=== PATIENT | female | born 1945 | race Caucasian/White ===

== ENCOUNTER → 2016-12-31 | Outpatient (CLI) | payer MEDICARE, BC ==
[~2016-12-31] MED LIST: ADVAIR 100/28 DISKUS IH; CALTRATE 600 +1 TAB PO; DOXEPIN; FERROUS SU325 MG/TAB PO; FLOVENT DI100 MCG/Ac IH; FOLIC ACID 40400 MCG PO; FOSAMAX PO; MIDAMOR 5MG TAB5 MG PO; MOBIC15 MG PO; MVI PO; NASACORT AQ N16.5 GM NS; NORCO 325 MG-7.1 TAB PO; OPTIVAR 6 ML 6 M6 ML OP; PEN-VEE K500 MG PO; PERCOCET 325 MG1 TA2 PO; PREMARIN VAG CREAM; PREMARIN VAG42.5 GM VG; PRILOSEC10 MG PO; PROAIR HFA0.09 MG/AC IH; RT ADVAIR 128 DISKUS IH; SIMVASTATIN40 MG PO; SINEQUAN 1100 MG/CAP PO; SINGULAIR 110 MG/TAB PO; SINGULAIR10 MG PO; STOOL SOFTENER100 M2 PO; SUDAFED 12 HOU120 MG PO; SUDAFED 12HR120 MG PO; TERBINAFINE PO; ULTRAM 50MG TAB50 MG PO; VITAMIN C BUFF500 MG PO; VITAMIN C500 MG PO; XARELTO10 MG PO; ZYRTEC-D 12HR 51 TER PO; ZYRTEC-D 5 MG-11 TER PO
== END ==
LOC: MC.RAD 11:20
DX: Z12.31 Encounter for screening mammogram for malignant neoplasm of breast (principal)

== ENCOUNTER → 2017-08-29 | Outpatient (CLI) | payer MEDICARE, BC | LOC: COL.LAB 15:17 | DX: Z01.812 Encounter for preprocedural laboratory examination (principal) ==

== ENCOUNTER 2017-09-05 12:57 | Observation (INO) | payer MEDICARE, BC ==
[~2017-09-05] VITALS: Ht 167.6 cm; Wt 96.2 kg
[2017-09-05 14:00] LABS: BASO % 0.3 % (0.0-2.0); EOS # 0.1 (0.0-0.7); EOS % 1.3 % (0-4.0); GRAN # 8.3 (1.4-6.5); GRAN % 78.7 % (42.2-75.2); HEMATOCRIT 39.2 % (37.0-47.0); HEMOGLOBIN 12.7 g/dl (12.5-16.0); LYMPH % 9.9 % (20.0-51.0); MEAN CELL VOLUME 86 fl (80.0-100.0); MEAN CORPUSCULAR HEMOGLOBIN 28 pg (27.0-31.0); MEAN CORPUSCULAR HGB CONC 32 g/dl (33.0-37.0); MEAN PLATELET VOLUME 10.8 fl (7.4-10.4); MONO % 9.4 % (1.7-9.3); PLATELET COUNT 232 K/mm3 (130-400); RED BLOOD COUNT 4.57 M/mm3 (4.10-5.30); REDCELL DISTRIBUTION WIDTH-CV 14.2 % (11.5-14.5)
[2017-09-05 14:04] LABS: INR 1.2 (0.8-3.0); PROTHROMBIN TIME 14.4 SECONDS (9.7-12.8)
[2017-09-05 14:07] LABS: PARTIAL THROMBOPLASTIN TIME 33.1 SECONDS (26.0-37.0)
[2017-09-05 14:10] LABS: ALANINE AMINOTRANSFERASE 54 U/L (9-52); ALBUMIN 3.6 gm/dL (3.5-5.0); ALKALINE PHOSPHATASE 152 U/L (50-136); ANION GAP 7 mmol/L (7-16); AST,SGOT 48 U/L (15-37); BILIRUBIN,TOTAL 0.5 mg/dL (0.0-1.0); BLOOD UREA NITROGEN 12 mg/dL (7-17); CALCIUM 9.4 mg/dL (8.4-10.2); CARBON DIOXIDE 31 mmol/L (22-30); CHLORIDE 96 mmol/L (98-107); CREATININE, serum 0.52 mg/dL (0.52-1.25); GLUCOSE 146 mg/dL (74-106); LIPASE 39 U/L (23-300); SODIUM 134 mmol/L (137-145); TOTAL PROTEIN 6.7 gm/dL (6.4-8.2)
[2017-09-05 14:23] LABS: TROPONIN-I < 0.012 ng/mL (0.000-0.034)
[2017-09-05] MEDS ORDERED: ASTELIN NASAL S34 ML NS (15:01)
[2017-09-05] MEDS ORDERED: XARELTO10 MG PO (15:27)
[2017-09-05] MEDS ORDERED: ZYRTEC 10MG10 MG PO (15:28)
[2017-09-05] MEDS ORDERED: ROXICODONE 55 MG/TAB PO (15:29)
[2017-09-05] MEDS ORDERED: FLOVENT DI100 MCG/Ac IH (18:19)
[2017-09-05] MEDS ORDERED: PROAIR HFA0.09 MG/AC IH (18:19)
[2017-09-05] MEDS ORDERED: SINEQUAN 1100 MG/CAP PO (18:20)
[2017-09-05] MEDS ORDERED: FLONASEALLERGY (18:22)
[2017-09-05] MEDS ORDERED: FLONASEALLERGY NS (18:23)
[2017-09-05 18:27] VITALS: BP 134/64; PULSE 98; TEMP 99.8
[2017-09-05 20:00] VITALS: BP 150/62; PULSE 106; TEMP 99.1
[2017-09-06] VITALS (7 sets, daily range): BP systolic 125–155; BP diastolic 54–82; PULSE 96–119; TEMP 97.5–99.5
[2017-09-06 05:46] LABS: BASO % 0.4 % (0.0-2.0); EOS # 0.2 (0.0-0.7); EOS % 1.6 % (0-4.0); GRAN # 8.4 (1.4-6.5); GRAN % 78.2 % (42.2-75.2); HEMATOCRIT 37.6 % (37.0-47.0); HEMOGLOBIN 12.2 g/dl (12.5-16.0); LYMPH # 1.1 (1.2-3.4); MEAN CELL VOLUME 87 fl (80.0-100.0); MEAN CORPUSCULAR HEMOGLOBIN 28 pg (27.0-31.0); MEAN CORPUSCULAR HGB CONC 32 g/dl (33.0-37.0); MEAN PLATELET VOLUME 10.5 fl (7.4-10.4); MONO % 9.4 % (1.7-9.3); PLATELET COUNT 236 K/mm3 (130-400); RED BLOOD COUNT 4.34 M/mm3 (4.10-5.30); REDCELL DISTRIBUTION WIDTH-CV 14.3 % (11.5-14.5)
[2017-09-06 05:58] LABS: ALANINE AMINOTRANSFERASE 51 U/L (9-52); ALBUMIN 3.4 gm/dL (3.5-5.0); ALKALINE PHOSPHATASE 147 U/L (50-136); ANION GAP 7 mmol/L (7-16); AST,SGOT 34 U/L (15-37); BILIRUBIN,TOTAL 0.5 mg/dL (0.0-1.0); BLOOD UREA NITROGEN 11 mg/dL (7-17); CALCIUM 9.3 mg/dL (8.4-10.2); CARBON DIOXIDE 28 mmol/L (22-30); CHLORIDE 98 mmol/L (98-107); CREATININE, serum 0.54 mg/dL (0.52-1.25); GLUCOSE 118 mg/dL (74-106); POTASSIUM 4.2 mmol/L (3.4-5.0); SODIUM 132 mmol/L (137-145); TOTAL PROTEIN 6.4 gm/dL (6.4-8.2)
[2017-09-06 06:13] LABS: TROPONIN-I < 0.012 ng/mL (0.000-0.034)
[2017-09-06 06:29] LABS: TSH w REFLEX 0.322 uIU/mL (0.465-4.680)
[2017-09-07 00:39] VITALS: BP 149/75; PULSE 104; TEMP 98.4
[2017-09-07 04:27] VITALS: BP 133/73; PULSE 105; TEMP 98.3
[2017-09-07 08:01] LABS: CALCIUM 9.3 mg/dL (8.4-10.2); CREATININE, serum 0.54 mg/dL (0.52-1.25); POTASSIUM 3.9 mmol/L (3.4-5.0)
[2017-09-07 10:31] VITALS: BP 136/52; PULSE 100; TEMP 98.8
[2017-09-07] MEDS ORDERED: XARELTO15 MG PO (11:44)
[2017-09-07] MEDS ORDERED: XARELTO20 MG PO (11:46)
[2017-09-07] MEDS ORDERED: ROXICODONE 55 MG/TAB PO (11:47)
[2017-09-07] MEDS ORDERED: LIDODERM 5% PATC1 EA TP (11:50)
== END 2017-09-07 13:05 | disposition home or self-care (01) ==
LOC: COL.ER 12:57 → JCC 17:15
PROVIDERS: Emergency Medicine; Family Medicine; Internal Medicine
DX: I26.99 Other pulmonary embolism without acute cor pulmonale (principal); R74.0 Nonspecific elevation of levels of transaminase and lactic acid dehydrogenase [LDH]; K59.00 Constipation, unspecified; E04.2 Nontoxic multinodular goiter; E05.80 Other thyrotoxicosis without thyrotoxic crisis or storm; K21.9 Gastro-esophageal reflux disease without esophagitis; J45.909 Unspecified asthma, uncomplicated; Z79.51 Long term (current) use of inhaled steroids; Z79.01 Long term (current) use of anticoagulants; Z88.0 Allergy status to penicillin; Z88.6 Allergy status to analgesic agent; Z88.8 Allergy status to other drugs, medicaments and biological substances; Z96.653 Presence of artificial knee joint, bilateral; Z96.643 Presence of artificial hip joint, bilateral; Z80.0 Family history of malignant neoplasm of digestive organs
CPT/HCPCS: 99222-AI; 99232-AI; G8978-GP; G8979-GP; J2270; Q9967

== ENCOUNTER 2017-09-22 14:35 | Inpatient (IN) | payer MEDICARE, BC ==
[~2017-09-22] VITALS: Ht 167.6 cm; Wt 86.3 kg
[2017-09-24] VITALS (8 sets, daily range): BP systolic 138–152; BP diastolic 60–86; PULSE 77–93; TEMP 97.9–98.9
[2017-09-24 15:18] LABS: BASO # 0.1 (0.0-0.2); BASO % 0.6 % (0.0-2.0); EOS # 0.2 (0.0-0.7); EOS % 1.9 % (0-4.0); GRAN # 6.1 (1.4-6.5); GRAN % 71.7 % (42.2-75.2); HEMATOCRIT 38.9 % (37.0-47.0); HEMOGLOBIN 12.3 g/dl (12.5-16.0); LYMPH # 1.5 (1.2-3.4); LYMPH % 17.7 % (20.0-51.0); MEAN CELL VOLUME 87 fl (80.0-100.0); MEAN CORPUSCULAR HEMOGLOBIN 28 pg (27.0-31.0); MEAN CORPUSCULAR HGB CONC 32 g/dl (33.0-37.0); MEAN PLATELET VOLUME 10.2 fl (7.4-10.4); MONO # 0.7 (0.1-0.6); MONO % 7.9 % (1.7-9.3); PLATELET COUNT 330 K/mm3 (130-400); RED BLOOD COUNT 4.48 M/mm3 (4.10-5.30); REDCELL DISTRIBUTION WIDTH-CV 13.9 % (11.5-14.5)
[2017-09-24] MEDS ORDERED: SINEQUAN 1100 MG/CAP PO (15:25)
[2017-09-24] MEDS ORDERED: AMILORIDE/HCTZ1 TAB PO (15:25)
[2017-09-24] MEDS ORDERED: NORCO 325 MG-7.1 TAB PO (15:26)
[2017-09-24] MEDS ORDERED: SINGULAIR 110 MG/TAB PO (15:27)
[2017-09-24] MEDS ORDERED: FLONASEALLERGY NS (15:31)
[2017-09-24] MEDS ORDERED: FLOVENT DI100 MCG/Ac IH (15:32)
[2017-09-24] MEDS ORDERED: PROAIR HFA0.09 MG/AC IH (15:33)
[2017-09-24] MEDS ORDERED: SUDAFED 12 HOU120 MG PO (15:35)
[2017-09-24] MEDS ORDERED: FERROUS SU325 MG/TAB PO (15:36)
[2017-09-24] MEDS ORDERED: COLACE 100100 MG/CAP PO (15:36)
[2017-09-24] MEDS ORDERED: PRILOTC PO (15:37)
[2017-09-24] MEDS ORDERED: FOLIC ACID 40400 MCG PO (15:37)
[2017-09-24] MEDS ORDERED: VITAMIN C500 MG PO (15:38)
[2017-09-24] MEDS ORDERED: MILK OF MA400 MG/52 PO (15:38)
[2017-09-24] MEDS ORDERED: ZYRTEC5 MG PO (15:39)
[2017-09-24] MEDS ORDERED: CALCIUM 600MG+D1 TAB PO (15:40)
[2017-09-25] VITALS (7 sets, daily range): BP systolic 123–153; BP diastolic 49–74; PULSE 93–121; TEMP 98–99
[2017-09-25 06:56] LABS: HEMATOCRIT 34.6 % (37.0-47.0); HEMOGLOBIN 11.2 g/dl (12.5-16.0)
[2017-09-26 04:19] VITALS: BP 130/56; PULSE 106; TEMP 97.5
[2017-09-26 07:07] LABS: HEMATOCRIT 31.2 % (37.0-47.0); HEMOGLOBIN 10.1 g/dl (12.5-16.0)
[2017-09-26 07:46] VITALS: BP 125/63; PULSE 99; TEMP 97.8
[2017-09-26 12:30] VITALS: BP 130/65; PULSE 100; TEMP 97.6
[2017-09-26 17:16] VITALS: BP 134/65; PULSE 96; TEMP 97.6
[2017-09-26 22:00] VITALS: BP 137/59; PULSE 103; TEMP 98.2
[2017-09-27 02:00] VITALS: BP 123/59; PULSE 111; TEMP 97.7
[2017-09-27 06:44] VITALS: BP 148/67; PULSE 106; TEMP 98.1
[2017-09-27 07:28] LABS: HEMATOCRIT 32.5 % (37.0-47.0); HEMOGLOBIN 10.2 g/dl (12.5-16.0)
[2017-09-27] MEDS ORDERED: XARELTO15 MG PO (10:12)
[2017-09-27] MEDS ORDERED: TYLENOL 500MG500 MG PO (10:16)
[2017-09-27] MEDS ORDERED: NORCO 325 MG-7.1 TAB PO (10:48)
[2017-09-27] MEDS ORDERED: ROXICODONE 55 MG/TAB PO (10:48)
[2017-09-27 12:05] VITALS: BP 148/67; PULSE 106; TEMP 98.1
== END 2017-09-27 13:15 | DRG 467 ==
LOC: JCC 09-24 07:30 → INPTSU 09-24 14:32 → JCC 09-24 14:32
PROVIDERS: Orthopaedic Surgery; Registered Nurse
PROC: 0SPS0JZ Removal of Synthetic Substitute from Left Hip Joint, Femoral Surface, Open Approach (ICD-10-PCS; 2017-09-24)
PROC: 0QS704Z Reposition Left Upper Femur with Internal Fixation Device, Open Approach (ICD-10-PCS; 2017-09-24)
PROC: 0SRS0JA Replacement of Left Hip Joint, Femoral Surface with Synthetic Substitute, Uncemented, Open Approach (ICD-10-PCS; principal; 2017-09-24 16:30)
DX: M80.052A Age-related osteoporosis with current pathological fracture, left femur, initial encounter for fracture (principal); M97.02XA Periprosthetic fracture around internal prosthetic left hip joint, initial encounter; J45.909 Unspecified asthma, uncomplicated; Z86.711 Personal history of pulmonary embolism; Z79.01 Long term (current) use of anticoagulants
CPT/HCPCS: A4314; A9284; C1776; J0690; J1100; J1170; J2175; J2270; J2405; J2550; J2704; J3010; J7120; J7121; P9016

== ENCOUNTER → 2017-09-22 | Outpatient (CLI) | payer MEDICARE, BC ==
[~2017-09-22] MED LIST changes: +ASTELIN NASAL S34 ML NS; +FLONASEALLERGY; +FLONASEALLERGY NS; +LIDODERM 5% PATC1 EA TP; +ROXICODONE 55 MG/TAB PO; +XARELTO15 MG PO; +XARELTO20 MG PO; +ZYRTEC 10MG10 MG PO
== END ==
LOC: COL.VAS 14:15
DX: M79.662 Pain in left lower leg (principal); M79.661 Pain in right lower leg

== ENCOUNTER → 2018-02-16 | Outpatient (CLI) | payer MEDICARE, BC ==
[~2018-02-16] MED LIST changes: +AMILORIDE/HCTZ1 TAB PO; +CALCIUM 600MG+D1 TAB PO; +COLACE 100100 MG/CAP PO; +MILK OF MA400 MG/52 PO; +PRILOTC PO; +TYLENOL 500MG500 MG PO; +ZYRTEC5 MG PO
== END ==
LOC: MC.RAD 10:32
DX: Z12.31 Encounter for screening mammogram for malignant neoplasm of breast (principal)

== ENCOUNTER → 2018-09-17 | Outpatient (CLI) | payer MEDICARE, BC ==
[~2018-09-17] MED LIST changes: +PROLIA60 MG/ML SQ
== END ==
LOC: COL.RAD 09-16 08:30
DX: Z00.00 Encounter for general adult medical examination without abnormal findings (principal); R91.8 Other nonspecific abnormal finding of lung field
CPT/HCPCS: Q9967

== ENCOUNTER → 2019-02-18 | Outpatient (CLI) | payer MEDICARE, BC | LOC: MC.RAD 10:45 | DX: Z12.31 Encounter for screening mammogram for malignant neoplasm of breast (principal) ==

== ENCOUNTER → 2019-10-04 | Outpatient (CLI) | payer MEDICARE, BC | LOC: COL.RAD 09-20 10:00 | DX: Z01.812 Encounter for preprocedural laboratory examination (principal); R91.8 Other nonspecific abnormal finding of lung field | CPT/HCPCS: Q9967 ==

== ENCOUNTER 2019-11-18 14:45 | Outpatient (CLI) | payer MEDICARE, BC ==
[~2019-11-18] VITALS: Ht 167.6 cm; Wt 98.0 kg
[2019-11-18 15:03] VITALS: BP 120/72; PULSE 91; TEMP 98.9
[2019-11-18] MEDS ORDERED: MOBIC15 MG PO (15:03)
== END 2019-11-18 15:38 | disposition home or self-care (01) ==
LOC: EUO 14:45
DX: M81.0 Age-related osteoporosis without current pathological fracture (principal)
CPT/HCPCS: J0897

== ENCOUNTER → 2020-02-21 | Outpatient (CLI) | payer MEDICARE, BC | LOC: MC.RAD 14:45 | DX: Z12.31 Encounter for screening mammogram for malignant neoplasm of breast (principal) ==

== ENCOUNTER → 2020-05-22 | Outpatient (CLI) | payer MEDICARE, BC ==
[~2020-05-22] VITALS: Ht 167.6 cm; Wt 99.0 kg
[~2020-05-22] MED LIST changes: +RESTORIL 1515 MG/CAP PO
[2020-05-22 15:21] VITALS: BP 145/76; PULSE 94; TEMP 98.3
== END ==
LOC: EUO 15:00
DX: M81.0 Age-related osteoporosis without current pathological fracture (principal)
CPT/HCPCS: J0897